=== PATIENT | female | born 1995 | race Caucasian/White ===

== ENCOUNTER → 2021-09-17 08:29 | Outpatient (CLI) | payer OTHER, SELFPAY ==
[2021-09-17 09:04] LABS: COVID19 -Nasal RAPID POSITIVE (Negative)
== END ==
PROVIDERS: Visit Provider Nurse Practitioner Family
DX: U07.1 COVID-19 (principal); Z20.822 Contact with and (suspected) exposure to COVID-19
CPT/HCPCS: 87635